=== PATIENT | female | born 1990 | race Caucasian/White ===

== ENCOUNTER 2024-11-16 11:51 | Emergency (ER) | payer OTHER, SELFPAY ==
--- NOTE | ~2024-11-16 | XR_ITS ---
CLINICAL HISTORY: Pnuemonia? 1 view chest x-ray Comparison: None provided Findings: No consolidation or effusion. Heart size is normal. No acute fracture. IMPRESSION: 1. No acute findings. This document has been electronically signed by: Lambert Mason MD on 11/16/2024 13:09:43
[2024-11-16 12:16] VITALS: BP 108/66; PULSE 88; RESP 16; TEMP 36.9; O2SAT 99; BMI 21.6
--- NOTE | 2024-11-16 12:20 | ED_ITS ---
HPI - General Adult General Chief complaint: Upper Respiratory Symptoms Stated complaint: flu like Time Seen by Provider: 11/16/24 12:20 Source: patient Mode of arrival: ambulatory Limitations: no limitations History of Present Illness ED Provider: Yves Jenkins HPI narrative: 34 yold female healthy with no pmh presents to the ED for coughing, sore throat, subjectinve fever, and cough since . Patient denies any chest pain or shortness of breath. Patient denies any rash, abdominal pain, dysuria, hematuria, flank pain, recent long travel or recent surgery. Related Data Allergies Allergy/AdvReac Type Severity Reaction Status Date / Time No Known Allergies Allergy Verified 11/16/24 12:18 Review of Systems Review of Systems: Cough, sore throat, congestion, subjective fevers Yes all other systems are reviewed and are negative [facility] Social History Social History Advance Directives: No Advance Directives Information Provided: No Do you have a plan to hurt others: No Plan Physical Exam ED Vital Signs: Vital Signs - 24 hr 11/16/24 12:16 11/16/24 15:40 11/16/24 16:07 Temperature 98.5 F 98.5 F Pulse Rate 88 88 Respiratory Rate 16 16 Blood Pressure 108/66 108/66 Pulse Oximetry 99 99 99 Oxygen Delivery Method Room Air Room Air BMI result Body Mass Index 21.6 Const General: cooperative, healthy appearing, comfortable, no acute distress, well developed, alert, awake and Physically active Orientation/consciousness: patient oriented x3 HENMT Head: Yes normal to inspection, Yes No palpable skull fracture present, Yes normocephalic and Yes atraumatic Ears: hearing grossly normal bilaterally, external ears normal, TM's normal bilaterally, TM normal on the right, TM normal on the left, EAC's normal, mastoids normal and no periauricular adenopathy Throat: Yes posterior oropharynx normal, Yes tonsils normal and Yes uvula midline Eyes General: appearance normal, both eyes and all related structures Neck Neck: Yes normal visual inspection, Yes full ROM, Yes no lymphadenopathy, Yes no meningeal signs, Yes trachea midline, Yes supple, No anterior neck swelling and No tender Chest Chest palpation & inspection: normal inspection of the chest and normal palpation of entire chest wall Resp Effort & Inspection: normal respiratory effort and able to speak in complete sentences Auscultation: clear to auscultation bilaterally Cardio Jugular venous distension: no JVD Heart sounds: S1 normal heart sound present and S2 normal heart sound present GI Inspection: Yes normal to inspection Palpation (GI): Soft to palpation, not firm, nontender, no guarding and not rigid General: Yes no CVA tenderness Back/Spine/Pelvis Back: no CVA tenderness and No back tenderness Skin General skin exam: no rashes or lesions noted, elasticity normal and turgor normal Neuro General: patient oriented x3, gait normal, tone normal, moves all extremities, Normal light touch and pain sensation, no meningeal signs, no focal motor deficits, CN's II-XI intact bilaterally and normal sensation to monofilament Extrem General: Yes normal to inspection, Yes full ROM and Yes capillary refill normal Psych Appearance: grossly normal, well kempt and not disheveled Course Course Course Narrative: RME: 34 yold female presents to the ED for sore throat, coughing, congeistion, and fevers since . Patient denies any one else at [facility] being sick. Patient any chest pain or shortness of breath. SaRS, Strep, and chest xray Medical Decision Making Medical Decision Making MDM Narrative: 34-year-old female presents to the ED with URI symptoms. Patient is well- appearing. SARs strep ordered. 3:53pm: Patient came back positive for COVID. Chest x-ray negative pneumonia. Patient explained worrisome signs and informed to return to the ED immediately. Patient is not hypoxic. Not suspecting PE, pericarditis, myocarditis, respiratory failure, or any other life threatening etiology. Differential Diagnosis Differential Diagnoses: The differential diagnosis associated with the presentation includes (COVID strep influenza pneumonia) Admission/Observation Consideration of admission/observation: Escalation of care including admission/observation considered Lab Data [facility] Lab Attestation statement: I reviewed the patient's lab results. Labs: Lab Results 11/16/24 Range/Units 14:43 Influenza Type A (PCR) NEGATIVE (Negative) Influenza Type B (PCR) NEGATIVE (Negative) RSV RNA Qual (PCR) NEGATIVE (Negative) SARS-CoV-2 RNA (RT-PCR) POSITIVE A (Negative) S. pyogenes GrpA MARLENY Negative (Negative) Independent Historian Clinical information obtained from an independent historian. History obtained from or confirmed by: Other (patient) Prescription Management I considered prescription management with: Pain Medication Discharge Plan Discharge Clinical Impression: COVID-19 Patient Disposition: Home, Self-Care Instructions: COVID-19 (Coronavirus Disease 2019) (ED) Additional Instructions: Return to the ED immediately for any chest pain, shortness of breath, coughing up blood, weakness, dizziness, or any other concerning symptoms. Recommend follow-up with PCP. [id number] Tylenol/Motrin can be used for pain/fever. Stand Alone Forms: Work/School Release Interventions: ED Discharge Assessment Last Done: 11/16/24 16:07 Discharge Date/Time: 11/16/24 16:08 Print Language: Slovak
--- NOTE | 2024-11-16 13:48 | MHC.EDTECH ---
Patient refuse blood work .RN aware
[2024-11-16 15:07] LABS: IDNOW Serial# 58CA691E; Strep A Nucleic Acid Negative (Negative)
[2024-11-16 15:40] VITALS: O2SAT 99
[2024-11-16 15:47] LABS: Influenza A PCR NEGATIVE (Negative); Influenza B PCR NEGATIVE (Negative); Resp Syncy Virus RNA Qual PCR NEGATIVE (Negative); SARS COV2 PCR INHOUSE POSITIVE (Negative)
[2024-11-16 16:07] VITALS: BP 108/66; PULSE 88; RESP 16; TEMP 36.9; O2SAT 99
== END 2024-11-16 16:08 | disposition home or self-care (01) ==
PROVIDERS: Physician Assistant; Emergency Provider Emergency Medicine Emergency Medical Services; PCP Internal Medicine
DX: U07.1 COVID-19 (principal); R05.9 Cough, unspecified; J02.9 Acute pharyngitis, unspecified; R50.9 Fever, unspecified
CPT/HCPCS: 0241U; 71045; 87651; 99283; 99284

== ENCOUNTER → 2024-11-16 12:18 | Outpatient (BNV) | payer OTHER, SELFPAY | PROVIDERS: Emergency Provider Emergency Medicine Emergency Medical Services; PCP Internal Medicine; Visit Provider Radiology Diagnostic Radiology | DX: J18.9 Pneumonia, unspecified organism (principal) | CPT/HCPCS: 71045 ==